=== PATIENT | female | born 1955 | race Caucasian/White ===

== ENCOUNTER → 2017-05-31 | Outpatient (CLI) | payer OTHER | LOC: FIMAGING 12:58 | PROVIDERS: ATTEND Internal Medicine Infectious Disease | DX: Z12.31 Encounter for screening mammogram for malignant neoplasm of breast (principal) | CPT/HCPCS: G0202 ==

== ENCOUNTER → 2017-10-31 | Outpatient (CLI) | payer OTHER | LOC: FIMAGING 15:08 | PROVIDERS: ATTEND Nurse Practitioner | DX: Z13.820 Encounter for screening for osteoporosis (principal); M85.80 Other specified disorders of bone density and structure, unspecified site; B20 Human immunodeficiency virus [HIV] disease; Z79.899 Other long term (current) drug therapy ==

== ENCOUNTER → 2017-12-10 | Outpatient (CLI) | payer OTHER ==
--- NOTE | 2017-12-10 09:03 | CPEKG ---
Heart Rate: 67 RR Interval: 896 P-R Interval: 160 QRSD Interval: 86 QT Interval: 408 QTC Interval: 431 P [place]: -31 QRS [place]: 5 T Wave [place]: 10 EKG Severity - NORMAL ECG - EKG Impression: SINUS RHYTHM Electronically Signed By: Elmer Dorado 10-Dec-2017 17:23:09
== END ==
LOC: FCP 08:45
PROVIDERS: ATTEND Nurse Practitioner
DX: R00.2 Palpitations (principal)

== ENCOUNTER → 2019-03-05 | Outpatient (CLI) | payer OTHER | LOC: CIMAGING 11:06 ==